=== PATIENT | female | born 1980 | race Two or more races ===

== ENCOUNTER 2025-04-14 15:23 | Emergency (ER) | payer OTHER ==
[~2025-04-14] VITALS: Ht 165.1 cm; Wt 90.7 kg
[2025-04-14] MEDS ORDERED: SEROQUEL200 MG PO (17:02)
[2025-04-14] MEDS ORDERED: CYMBALTA20 MG PO (17:02)
[2025-04-14] MEDS ORDERED: TRAZODONE HCL150 MG PO (17:02)
[2025-04-14] MEDS ORDERED: 0.9 % SODIUM CHLORIDE 1,000 ML IV SCH (17:30)
[2025-04-14 18:08] LABS: BASO % 0.7 % (0.1-1.2); EOS # 0.18 (0.04-0.54); EOS % 1.7 % (0.7-7.0); HEMATOCRIT 40.7 % (34.1-44.9); HEMOGLOBIN 13.3 g/dL (11.2-15.7); LYMPH # 3.27 (1.18-3.74); LYMPH % 30.4 % (19.3-53.1); MEAN CORPUSCULAR HEMOGLOBIN 24.5 pg (25.6-32.2); MONO # 0.67 (0.24-0.82); MONO % 6.2 % (4.7-12.5); NEUT # 6.52 (1.56-6.13); NEUT % 60.6 % (34.0-71.1); PLATELET COUNT 418 K/uL (163-369); RED BLOOD COUNT 5.42 M/uL (3.93-5.22); RED CELL DISTRIBUTION WIDTH 19.9 % (11.6-14.4)
[2025-04-14 18:52] LABS: ALBUMIN 3.8 gm/dL (3.4-5.0); BILIRUBIN TOTAL 0.29 mg/dL (0.3-1.2); CALCIUM 9.2 mg/dL (8.5-10.1); CREATININE SERUM 0.81 mg/dL (0.55-1.02); GFR 76.46; GLOBULINA 3.6 G/DL (2.4-3.5); POTASSIUM 4.02 mEq/L (3.5-5.1); TOTAL PROTEIN 7.4 gm/dL (6.4-8.2)
== END 2025-04-15 01:48 | disposition left against medical advice (07) ==
LOC: ER 15:43
PROVIDERS: Emergency Medicine
DX: K52.9 Noninfective gastroenteritis and colitis, unspecified (principal); I10 Essential (primary) hypertension; M32.9 Systemic lupus erythematosus, unspecified; M79.7 Fibromyalgia
CPT/HCPCS: 36415; 96365; 99283; J3490

== ENCOUNTER 2025-08-24 09:11 | Emergency (ER) | payer OTHER ==
[~2025-08-24] VITALS: Ht 165.1 cm; Wt 86.6 kg
[~2025-08-24 09:11] MED LIST: CYMBALTA20 MG PO; SEROQUEL200 MG PO; TRAZODONE HCL150 MG PO
[2025-08-24] MEDS ORDERED: KETOROLAC TROMETHAMINE 30 MG VIAL IU ONE (10:30)
[2025-08-24] MEDS ORDERED: METOCLOPRAMIDE HCL 5 MG/ML VIAL IV ONE (10:30)
[2025-08-24] MEDS ORDERED: KETOROLAC TROMETHAMINE 30 MG VIAL ONE (10:54)
[2025-08-24] MEDS ORDERED: METOCLOPRAMIDE HCL 5 MG/ML VIAL ONE (10:55)
[2025-08-24 11:18] LABS: BASO % 0.5 % (0.1-1.2); EOS # 0.07 (0.04-0.54); EOS % 0.5 % (0.7-7.0); LYMPH # 2.82 (1.18-3.74); LYMPH % 18.3 % (19.3-53.1); MEAN PLATELET VOLUME 9.60 fl (9.4-12.4); MONO # 0.63 (0.24-0.82); MONO % 4.1 % (4.7-12.5); NEUT # 11.76 (1.56-6.13); NEUT % 76.3 % (34.0-71.1); RED CELL DISTRIBUTION WIDTH 15.6 % (11.6-14.4)
[2025-08-24 11:49] LABS: BUN CREA RATIO 18.0 (7.0-25.0); CREATININE SERUM 0.73 mg/dL (0.55-1.02); GFR 86.21; GLUCOSE FASTING 90.0 mg/dL (65-100); OSMOLALITY SERUM 275.0 MOSM/KG (275-295)
== END 2025-08-24 19:06 | disposition home or self-care (01) ==
LOC: ER 09:11
PROVIDERS: Emergency Medicine
DX: R51.9 Headache, unspecified (principal); R07.89 Other chest pain
CPT/HCPCS: 36415; 71046; 93005; 96365; 99283; J1885; J2765